=== PATIENT | male | born 1965 | race Caucasian/White ===

== ENCOUNTER 2017-03-19 05:32 | Day surgery (SDC) | payer OTHER ==
[~2017-03-19] VITALS: Ht 177.8 cm; Wt 80.9 kg
[2017-03-19] VITALS (14 sets, daily range): BP systolic 106–141; BP diastolic 73–96; PULSE 60–98; RESP 15–23; Ht 177.8 cm; Wt 80.9 kg
[~2017-03-19 05:32] MED LIST: BUPIVACAINE 0.25% (MPF) 10 ML 10 ML VIAL INJ ONE; POLYMYXIN/BACITRACIN 1L IRRIG IRR ONE
[2017-03-19] MEDS ORDERED: SOD CHLORIDE 0.9% 1,000 ML IV SCH (06:30)
[2017-03-19] MEDS ORDERED: CLINDAMYCIN 600 MG/D5W (PMX) 50 ML IVPB SCH (06:30)
[2017-03-19] MEDS ORDERED: BUPIVACAINE 0.25% (MPF) 10 ML 10 ML VIAL ONE (06:56)
[2017-03-19] MEDS ORDERED: ASPI81TA3 PO (07:00)
[2017-03-19] MEDS ORDERED: PROPOFOL 20 ML ONE (07:31)
[2017-03-19] MEDS ORDERED: MEPERIDINE 100 MG INJ ONE (07:31)
[2017-03-19] MEDS ORDERED: LIDOCAINE 2% (SDV) 5 ML INJ ONE (07:31)
[2017-03-19] MEDS ORDERED: CLINDAMYCIN 600 MG/D5W (PMX) 50 ML IVPB ONE (07:45)
[2017-03-19] MEDS ORDERED: MIDAZOLAM 1 MG/ML 2 ML INJ IV PRN (08:30)
[2017-03-19] MEDS ORDERED: HYDROmorphONE (0.2 MG/ML) 10ML SYG IV PRN ×2 (08:30)
[2017-03-19] MEDS ORDERED: ONDANSETRON 4 MG INJ IV PRN (08:30)
[2017-03-19] MEDS ORDERED: FENTAnyl 50 MCG/ML VIAL IV PRN ×3 (08:30)
[2017-03-19] MEDS ORDERED: METOCLOPRAMIDE 10 MG INJ IV PRN (08:30)
[2017-03-19] MEDS ORDERED: DIPHENHYDRAMINE 50 MG INJ IV PRN (08:30)
[2017-03-19] MEDS ORDERED: OXYCODONE/ACETAMINOPHEN (5/325) TAB PO PRN ×2 (08:30)
[2017-03-19] MEDS ORDERED: LABETALOL HCL 20MG INJ IV PRN (08:30)
[2017-03-19] MEDS ORDERED: MEPERIDINE 25 MG INJ IV PRN (08:30)
[2017-03-19] MEDS ORDERED: EPHEDrine SULFATE 50 MG/5 ML SYG IV PRN (08:30)
[2017-03-19] MEDS ORDERED: ONDANSETRON 4 MG INJ ONE (08:40)
--- NOTE | 2017-03-19 08:50 | OPR ---
Date/Time of Note Date/Time of Note DATE: 03/19/17 TIME: 08:46 Operative Report Procedure Date: Mar 19, 2017 Preoperative Diagnosis RIH Postoperative Diagnosis RIH incarcerated Operation Performed 1. open incarcerated right inguinal hernia repair with ultrapro medium hernia system mesh 2. localized adjacent tissue transfer with the use of skin flaps 16 sq cm defect 3. therapeutic injection of subcutaneous marcaine Surgeon: Batsheva PEREZ Indications This is a 52-year-old male with an incarcerated right inguinal hernia. He requires surgical repair. Risks alternatives benefits and percent were discussed with the patient. Patient's expressed understanding and consents to the operation. Procedure Description Patient is taken to the OR and prepped and draped in usual sterile fashion. Surgical timeout is performed. IV antibiotics are given. Right inguinal oblique incision is made with a 10 blade. Dissection cautery was carried down 6 oblique fascia. The external oblique fascia is open with a 15 blade this incision is extended medially inferiorly lateral superiorly with Metzenbaum scissors. Cord structures identified and encircled with a Morrison drain. Indirect incarcerated hernias reduced. The hernia sac is identified. This was used to bolster the distal portion of the Ultram for hernia system mesh with a single 0 Vicryl. The disc ultra pro hernia system mesh is secured in place with a running 0 Prolene from the pubic tubercle along the shelving of the inguinal ligament. Superiorly to the internal oblique the disc is secured with interrupted 3-0 Vicryl. Onlay mesh is secured in a similar fashion with a running 0 Prolene from the pubic tubercle along the shelving edge of the inguinal ligament. Strep to created and reapproximated around the cord structures to recreate the inguinal ring with interrupted 0 Prolene. Onlay mesh is secured to the internal oblique with interrupted 3-0 Vicryl. External oblique fascia is closed with a running 3-0 Vicryl. Roberto's fascia is closed with interrupted 3-0 Vicryl. Skin is closed in a multilayer fashion due to large tissue defect with localized adjacent tissue transfer to the skin flaps. Multilayer closure with interrupted 3-0 Vicryl and skin stefanie. Therapeutic subcutaneous Marcaine is injected along the incision line. Dry dressings were applied. Batsheva PEREZ Mar 19, 2017 08:50
[2017-03-19] MEDS ORDERED: HYDROCODONE/APAP (5/325) TAB PO ONE (09:00)
[2017-03-19] MEDS: HYDROmorphONE (0.2 MG/ML) 10ML SYG IV PRN ×2 (09:10→09:21)
== END 2017-03-19 11:05 | disposition home or self-care (01) ==
LOC: SDS 05:32
PROVIDERS: ATTEND Surgery
DX: K40.00 Bilateral inguinal hernia, with obstruction, without gangrene, not specified as recurrent (principal); K40.30 Unilateral inguinal hernia, with obstruction, without gangrene, not specified as recurrent; F17.200 Nicotine dependence, unspecified, uncomplicated
CPT/HCPCS: 49507; C1781; J1170; J2175; J2405; Z7512; Z7610